=== PATIENT | male | born 1990 | race Two or more races ===

== ENCOUNTER → 2017-04-27 | Outpatient (REF) | payer OTHER ==
[2017-04-27 10:44] LABS: % NORMAL FORMS 14 % (>=4); IMMOTILITY 25 %; NON PROGRESSIVE MOTILITY (c) 20 %; PROGRESSIVE MOTILITY (a) 55 % (>=32); SPERM# 39.3 M/Ejac (33-46); TOTAL MOTILITY 75 % (>=40)
[2017-04-27 10:45] LABS: TOTAL FUNCTIONAL 6.5 M/Ejac.; TOTAL PROGRESSIVE SPERM 21.7 M/Ejac.
== END ==
LOC: M LAB REF 10:23
PROVIDERS: ATTEND Physician Assistant
DX: Z31.41 Encounter for fertility testing (principal)

== ENCOUNTER → 2017-05-29 | Outpatient (CLI) | payer OTHER ==
--- NOTE | 2017-05-30 05:00 | REP ---
Clinical: Oligospermia. Technique: Noel scale and color Doppler evaluation using linear and curved array transducer with color Doppler evaluation. Findings: The testicles and epididymi are relatively normal in contour, size, echogenicity, vascularity and overall appearance. 2 mm left epididymal head cyst identified along with solitary right varicocele measuring 4 mm on Valsalva. There is no evidence for intratesticular mass lesion, infectious/inflammatory process, with torsion. No significant hydroceles identified. Incidental note is made of a 3 mm left scrotal caryn. Right testicle measures 4.0 x 1.9 x 2.6 cm. Left testicle measures 3.9 x 1.7 x 2.7 cm. Impression: Essentially normal scrotal ultrasound. Few nonspecific findings as described above. Signed by Regan Giron MD 05/30/2017 04:50 A
== END ==
LOC: M SMT 15:00
PROVIDERS: ATTEND Nurse Practitioner Women's Health
DX: N46.11 Organic oligospermia (principal); N50.3 Cyst of epididymis; I86.1 Scrotal varices

== ENCOUNTER → 2017-06-07 | Outpatient (REF) | payer OTHER ==
[2017-06-07 15:32] LABS: % NORMAL FORMS 13 % (>=4); IMMOTILITY 30 %; NON PROGRESSIVE MOTILITY (c) 17 %; PROGRESSIVE MOTILITY (a) 53 % (>=32); SPERM# 63.1 M/Ejac (>=39); TOTAL FUNCTIONAL 9.4 M/Ejac.; TOTAL MOTILITY 70 % (>=40); TOTAL PROGRESSIVE SPERM 33.3 M/Ejac.
== END ==
LOC: M SMT 15:10
PROVIDERS: ATTEND Nurse Practitioner Women's Health
DX: N46.11 Organic oligospermia (principal); N46.9 Male infertility, unspecified